=== PATIENT | male | born 1970 | race American Indian/Alaskan Native ===

== ENCOUNTER 2020-07-05 10:30 | Outpatient (CLI) | payer BC ==
--- NOTE | 2020-07-05 11:00 | ULT ---
EXAM: Abdominal ultrasound complete: HISTORY: Abdominal pain COMPARISON: None FINDINGS: Borderline enlarged with minimal coarse echogenicity evidence for nonspecific hepatic parenchymal pro cess. The gallbladder demonstrates no evidence for gallstones, wall thickening, or pericholecystic fluid. The common bile duct is Within normal limits. Visualized pancreas: Unremarkable. Visualized abdominal aorta: Unremarkable. Visualized IVC: Unremarkable. Visualized spleen: Unremarkable. Visualized kidneys: No evidence for hydronephrosis or solid or cystic mass. No mass, abscess, adenopathy, or abnormal fluid collection or other acute process. IMPRESSION: Borderline size liver with minimal increased coarse liver echogenicity evidence for nonspecific hepat ic parenchymal process.
== END 2020-07-05 10:31 | disposition home or self-care (01) ==
LOC: BICULT 10:30
PROVIDERS: ATTEND Family Medicine
DX: R10.9 Unspecified abdominal pain (principal); K76.89 Other specified diseases of liver
CPT/HCPCS: 93975